=== PATIENT | male | born 1960 | race Caucasian/White ===

== ENCOUNTER 2018-12-19 00:21 | Emergency (ER) | payer SELFPAY ==
[~2018-12-19] VITALS: Ht 165.1 cm; Wt 84.4 kg
[2018-12-19 00:25] VITALS: Ht 165.1 cm; Wt 84.4 kg
[2018-12-19 00:59] LABS: PLATELET COUNT 230 x10^3mcL (130-400); RED CELL DISTRIBUTION WIDTH 13.5 % (11.5-14.5)
[2018-12-19 01:09] LABS: CALCIUM 8.5 mg/dL (8.5-10.1); CARBON DIOXIDE 30.2 mmol/L (21-32); CHLORIDE SERUM 103 mmol/L (98-107); CREATININE SERUM 0.8 mg/dL (0.7-1.3); GFR1 > 60 mL/min; GLUCOSE SERUM 133 mg/dL (74-106); POTASSIUM SERUM 3.9 mmol/L (3.5-5.1); SODIUM SERUM 139 mmol/L (136-145)
[2018-12-19 01:13] LABS: ALBUMIN 3.9 g/dL (3.4-5.0); ALKALINE PHOSPHATASE 77 U/L (46-116); ALT/SGPT 41 U/L (16-63); AST/SGOT 26 U/L (15-37); BILIRUBIN TOTAL 0.25 mg/dL (0.20-1.00); CHOLESTEROL 142 mg/dL (<200); LIPASE 156 IU/L (73-393); TOTAL PROTEIN, SERUM 7.9 g/dL (6.4-8.2)
[2018-12-19 01:19] LABS: CHOLESTEROL/HDL RATIO 4.9; HDL CHOLESTEROL 29 mg/dL (40-60); TRIGLYCERIDES 280 mg/dL (<150)
[2018-12-19 01:20] LABS: T3 TOTAL 1.32 ng/mL
[2018-12-19 02:25] LABS: FREE T4 1.03 ng/dL (0.76-1.46); FREE THYROXINE INDEX 3.4 ug/dL (1.4-4.5)
[2018-12-19 04:11] VITALS: BP 130/77
== END 2018-12-19 04:11 | disposition home or self-care (01) ==
LOC: ED 00:21
PROVIDERS: Specialist
DX: J20.9 Acute bronchitis, unspecified (principal)
CPT/HCPCS: 36415; 36600; 83880; 84439; 87804; J7030; J7613; J7644; Q0092; Q9967